=== PATIENT | male | born 1945 | race African-American/Black ===

== ENCOUNTER 2018-01-13 18:21 | Inpatient (IN) ==
[2018-01-22 12:04] VITALS: BP 143/83
== END 2018-01-22 12:10 | disposition left against medical advice (07) | DRG 190 ==
LOC: N.ED 18:21 → N.EDINP 21:47 → SUATTDRO 21:47 → N.3E 22:55
PROVIDERS: ADMIT Internal Medicine; ATTEND Internal Medicine Cardiovascular Disease